=== PATIENT | male | born 1990 | race Caucasian/White ===

== ENCOUNTER → 2018-02-17 | Emergency (ER) | payer OTHER ==
[~2018-02-17] VITALS: Ht 170.2 cm; Wt 83.9 kg
[~2018-02-17] MED LIST: PROMETH-CODEIN 65 ML PO; SINGULAIR10 MG PO; SYMBICORT 16010.2 GM IH; TESSALON PERLE100 M1 PO
== END | disposition home or self-care (01) ==
LOC: ER 21:13
DX: R05 Cough (principal)

== ENCOUNTER 2018-03-21 08:18 | Inpatient (IN) | payer OTHER ==
[~2018-03-21] VITALS: Ht 167.6 cm; Wt 83.9 kg
== END 2018-03-24 13:08 | disposition home or self-care (01) | DRG 387 ==
LOC: ER 08:18 → SURH 15:18 → SEC-K 15:18 → SURH 17:09
PROC: BW21Y0Z Computerized Tomography (CT Scan) of Abdomen and Pelvis using Other Contrast, Unenhanced and Enhanced (ICD-10-PCS; principal; 2018-03-21)
PROC: 8E0ZXY6 Isolation (ICD-10-PCS; 2018-03-21)
DX: K51.511 Left sided colitis with rectal bleeding (principal); E86.0 Dehydration

== ENCOUNTER 2018-10-29 06:00 | Emergency (ER) | payer OTHER ==
[~2018-10-29] VITALS: Ht 170.2 cm; Wt 81.6 kg
[2018-10-29] MEDS ORDERED: AMOX-CLAV 875-1 EACH PO (14:41)
[2018-10-29] MEDS ORDERED: KETO10TA2 PO (14:41)
[2018-10-29] MEDS ORDERED: PEPCID AC20 MG PO (14:41)
[2018-10-29] MEDS ORDERED: INTESTINEX680 M1 PO (14:41)
== END 2018-10-29 15:15 | disposition home or self-care (01) ==
LOC: ER 06:00
DX: J35.01 Chronic tonsillitis (principal)

== ENCOUNTER 2019-03-21 07:14 | Emergency (ER) | payer OTHER ==
[~2019-03-21] VITALS: Ht 172.7 cm; Wt 81.6 kg
[~2019-03-21 07:14] MED LIST changes: +AMOX-CLAV 875-1 EACH PO; +INTESTINEX680 M1 PO; +KETO10TA2 PO; +PEPCID AC20 MG PO
== END 2019-03-21 13:51 | disposition home or self-care (01) ==
LOC: ER 07:14
DX: M94.0 Chondrocostal junction syndrome [Tietze] (principal); M62.838 Other muscle spasm

== ENCOUNTER → 2021-01-01 13:45 | Outpatient (CLI) | payer OTHER | END | disposition home or self-care (01) | LOC: PPH VACUNA 13:45 | DX: Z23 Encounter for immunization (principal) ==

== ENCOUNTER → 2021-07-24 | Outpatient (CLI) | payer OTHER | END | disposition home or self-care (01) | LOC: PPH VACUNA 07:00 | PROVIDERS: ATTEND Emergency Medicine Pediatric Emergency Medicine | DX: Z23 Encounter for immunization (principal) ==